=== PATIENT | female | born 1960 | race Caucasian/White ===

== ENCOUNTER 2021-12-02 08:13 | Observation (INO) ==
[2021-12-02] MEDS ORDERED: NS 0.9% 1000 ml BAG 1,000 ML IV ONE ×2 (08:59→10:54)
[2021-12-02] MEDS ORDERED: Ondansetron 4 mg VIAL 2 MG/ML 2 ml VIAL IV ONE (09:12)
[2021-12-02] MEDS ORDERED: Magnesium Sulfate 2 gm BAG 2 GM/50 ML BAG IVPB ONE (09:12)
[2021-12-02] MEDS: NS 0.9% 1000 ml BAG 1,000 ML IV ONE ×2 (09:21→10:54)
[2021-12-02] MEDS ORDERED: BEBTELOVIMAB 175 MG/2 ML VIAL IV ONE (09:43)
[2021-12-02 09:44] LABS: ABS Eosinophils 0.1 10^3/ul (0-0.6); ABS Lymphocytes 0.3 10^3/ul (1.0-4.8); ABS Monocytes 0.6 10^3/ul (0-0.8); ABS Neutrophils 4.5 10^3/ul (1.5-7.7); Eosinophil % 1.3 %; Hematocrit 43 % (35-47); Hemoglobin 14.8 g/dL (12.0-16.0); Lymphocyte % 6.2 %; Mean Corpuscular HGB Conc 34 g/dL (31-36); Mean Corpuscular Hemoglobin 30 pg (27-31); Mean Corpuscular Volume 89 fL (80-97); Mean Platelet Volume 9.5 fL (7.4-10.4); Platelet Count 210 10^3/uL (150-450); Red Blood Count 4.89 10^6 /uL (3.70-4.87); Red Cell Distribution Width 13 % (10-15); White Blood Count 5.5 10^3/uL (3.5-10.8)
[2021-12-02 10:27] LABS: Albumin 4.7 g/dL (3.2-5.2); Albumin/Globulin Ratio 1.7 (1-3); Calcium 9.7 mg/dL (8.6-10.3); Globulin 2.8 g/dL (2-4); Potassium 4.2 mmol/L (3.5-5.0); Total Bilirubin 0.4 mg/dL (0.2-1.0); Total Protein 7.5 g/dL (6.4-8.9); eGFR CKD-EPI 65.7 (>60)
[2021-12-02] MEDS ORDERED: methylPREDNISolone SOD SUCC 125 mg 2 ML VIAL IV ONE (10:52)
[2021-12-02] MEDS ORDERED: Albuterol HFA INHALER 8 gm MDI INH ONE (11:30)
[2021-12-02] MEDS ORDERED: Lidocaine 1% VIAL 10 MG/ML VIAL INJ ONE (11:40)
[2021-12-02] MEDS ORDERED: Lidocaine 1% MPF 5 ML VIAL INJ ONE (12:00)
[2021-12-02 12:37] LABS: Body Fluid Source Cerebral Spinal
[2021-12-02 12:52] LABS: CSF Glucose 78 mg/dL (40-70)
[2021-12-02] MEDS ORDERED: Albuterol HFA INHALER 8 gm MDI INH PRN (14:32)
[2021-12-02] MEDS ORDERED: EPINEPHrine Anaphylaxis SYR CERTADOSE SYR KIT IM PRN (14:39)
[2021-12-02 15:29] LABS: Body Fluid Appearance Clear; Body Fluid Color Colorless; Body Fluid WBC 0 /mcL; CSF Tube # 4
[2021-12-02 15:42] LABS: Body Fluid Total Cells Counted 11
[2021-12-02] MEDS: Mometasone/Formoter 200/5 MDI INH SCH (19:27)
[2021-12-03 06:30] LABS: Calcium 8.4 mg/dL (8.6-10.3); Potassium 4.4 mmol/L (3.5-5.0); eGFR CKD-EPI 71.7 (>60)
[2021-12-03] MEDS: Mometasone/Formoter 200/5 MDI INH SCH (07:04)
[2021-12-03 12:42] VITALS: BP 129/62
== END 2021-12-03 16:15 | disposition home or self-care (01) ==
LOC: ED 08:13 → SUATTDRO 14:27 → EDHOLD 14:27 → INTOOBSV 14:27 → EDHOLD 17:06 → MED 17:29
PROVIDERS: ADMIT Internal Medicine; ATTEND Internal Medicine